=== PATIENT | male | born 1950 | race Caucasian/White ===

== ENCOUNTER 2021-11-26 16:56 | Observation (INO) | payer MEDICARE, OTHER ==
[2021-11-26] MEDS ORDERED: Albuterol/Ipratropium 3.0-0.5 MG/3 ML Neb Soln NEB ONE (17:02)
[2021-11-26] MEDS ORDERED: Sodium Chloride 0.9% 10 ML Syringe FLUSH PRN (17:09)
[2021-11-26 17:23] LABS: O2 DELIVERY DEVICE NASAL CANNULA
[2021-11-26 17:26] LABS: O2 SATURATION ARTERIAL 97 % (95-98); PCO2 ARTERIAL 48 mm/Hg0 (35-45); PO2 ARTERIAL 98 mm/Hg (80-100)
[2021-11-26 17:27] LABS: BICARBONATE,ARTERIAL 25.8 mm/L (22.0-26.0)
[2021-11-26] MEDS ORDERED: Furosemide 40 MG/4 ML VIAL IVPUSH ONE (17:45)
[2021-11-26] MEDS ORDERED: Acetaminophen 500 MG Tab PO PRN (18:51)
[2021-11-26] MEDS: Albuterol/Ipratropium 3.0-0.5 MG/3 ML Neb Soln NEB PRN (19:47)
[2021-11-26] MEDS: methylPREDNISolone Sodium Succinate 125 MG/2 ML SDV IVPUSH SCH (19:48)
[2021-11-26] MEDS: Montelukast 10 MG Tab PO SCH (19:48)
[2021-11-26] MEDS: Albuterol/Ipratropium 3.0-0.5 MG/3 ML Neb Soln NEB SCH (20:00)
[2021-11-27] MEDS: Albuterol/Ipratropium 3.0-0.5 MG/3 ML Neb Soln NEB PRN ×2 (00:15→23:24)
[2021-11-27] MEDS: methylPREDNISolone Sodium Succinate 125 MG/2 ML SDV IVPUSH SCH ×2 (07:06→19:36)
[2021-11-27] MEDS: Beta-Carotene (Vitamin A) w/Vitamin C & E plus Minerals Tab PO SCH (08:32)
[2021-11-27] MEDS: Albuterol/Ipratropium 3.0-0.5 MG/3 ML Neb Soln NEB SCH ×4 (08:32→19:37)
[2021-11-27] MEDS: GUAIFENESIN 600 MG PO SCH ×3 (09:22→19:37)
[2021-11-27] MEDS: LOSARTAN 25 MG PO SCH (09:27)
[2021-11-27] MEDS: Furosemide 20 MG Tab ** OWN MED PO SCH (09:28)
[2021-11-27] MEDS: atorvaSTATin 20 MG Tab ** OWN MED PO SCH (09:29)
[2021-11-27] MEDS: METOPROLOL SUCCINATE 50 MG PO SCH (09:29)
[2021-11-27] MEDS: FORMOTEROL INH SCH ×2 (09:30→19:37)
[2021-11-27] MEDS: BUDESONIDE INH SCH ×2 (09:30→19:37)
[2021-11-27] MEDS ORDERED: Tiotropium Inhaler 18 MCG Inhalation Powder Cap Kit of 5 INH SCH (16:00)
[2021-11-27] MEDS: Montelukast 10 MG Tab PO SCH (19:37)
[2021-11-28] MEDS: Albuterol/Ipratropium 3.0-0.5 MG/3 ML Neb Soln NEB PRN (03:29)
[2021-11-28] MEDS: FORMOTEROL INH SCH (07:40)
[2021-11-28] MEDS: LOSARTAN 25 MG PO SCH (07:40)
[2021-11-28] MEDS: BUDESONIDE INH SCH (07:40)
[2021-11-28] MEDS: GUAIFENESIN 600 MG PO SCH (07:45)
[2021-11-28] MEDS: Albuterol/Ipratropium 3.0-0.5 MG/3 ML Neb Soln NEB SCH (07:45)
[2021-11-28] MEDS: Furosemide 20 MG Tab ** OWN MED PO SCH (07:45)
[2021-11-28] MEDS: Beta-Carotene (Vitamin A) w/Vitamin C & E plus Minerals Tab PO SCH (07:46)
[2021-11-28] MEDS: METOPROLOL SUCCINATE 50 MG PO SCH (07:46)
[2021-11-28] MEDS: atorvaSTATin 20 MG Tab ** OWN MED PO SCH (07:46)
[2021-11-28] MEDS: methylPREDNISolone Sodium Succinate 125 MG/2 ML SDV IVPUSH SCH (07:47)
== END 2021-11-28 10:25 | disposition home or self-care (01) ==
LOC: CC.ED 16:56 → UNDOADMOB 17:55 → CC.MS 17:55
PROVIDERS: ADMIT Nurse Practitioner Family; ATTEND Family Medicine
DX: J44.1 Chronic obstructive pulmonary disease with (acute) exacerbation (principal); I11.0 Hypertensive heart disease with heart failure; I50.30 Unspecified diastolic (congestive) heart failure; H91.90 Unspecified hearing loss, unspecified ear; Z99.81 Dependence on supplemental oxygen; Z87.891 Personal history of nicotine dependence; Z79.51 Long term (current) use of inhaled steroids; Z79.899 Other long term (current) drug therapy
CPT/HCPCS: 36415; 36600; 71045; 80053; 82803; 83605; 83880; 85025; 93005; 93010; 94640; 96374; 96375; 96376; 99217; 99220; 99225; 99285-25; A9270-GY; G0378; J1940; J2930; J7620-GY

== ENCOUNTER 2022-07-09 03:49 | Inpatient (IN) | payer MEDICARE, OTHER ==
[~2022-07-09 03:49] MED LIST: Acetaminophen 325 MG Tab ONE; Acetaminophen 500 MG Tab ONE
[2022-07-09] MEDS ORDERED: Acetaminophen 325 MG Tab PO ONE (03:57)
[2022-07-09] MEDS ORDERED: Sodium Chloride 0.9% 10 ML Syringe FLUSH PRN (04:00)
[2022-07-09 04:23] LABS: CHLORIDE,CL 105 mEq/L (98-106); SODIUM,NA 144 mEq/L (136-145)
[2022-07-09 04:25] LABS: ESTIMATED GFR 53 mL/min (>=60)
[2022-07-09 04:44] LABS: PTT,PARTIAL THROMBOPLSTIN TIME 21.3 SEC (23.2-32.3)
[2022-07-09] MEDS ORDERED: Azithromycin 500 MG in Sodium Chloride 0.9% 250 ML IV STA (04:44)
[2022-07-09] MEDS ORDERED: cefTRIAXone 1 GM Vial IVPUSH ONE (04:44)
[2022-07-09] MEDS ORDERED: Iopamidol 755 Mg/ML 100 ML Bottle IVPUSH ONE (04:49)
[2022-07-09] MEDS: Sodium Chloride 0.9% 1,000 ML IV SCH ×2 (04:52→13:49)
[2022-07-09] MEDS ORDERED: Sodium Chloride 0.9% 1,000 ML IV SCH (05:00)
[2022-07-09 09:04] LABS: O2 DELIVERY DEVICE SIMPLE MASK
[2022-07-09 09:07] LABS: BASE EXCESS ARTERIAL 1.2 (-2.0-3.0); BICARBONATE,ARTERIAL 25.8 mm/L (22.0-26.0); O2 SATURATION ARTERIAL 94 % (95-98); PCO2 ARTERIAL 41 mm/Hg0 (35-45); PO2 ARTERIAL 68 mm/Hg (80-100)
[2022-07-09] MEDS ORDERED: Tiotropium Inhaler 18 MCG Inhalation Powder Cap Kit of 5 INH PRN (09:15)
[2022-07-09] MEDS ORDERED: Albuterol 8 GM Inhaler INH PRN (09:29)
[2022-07-09] MEDS ORDERED: Non-Formulary Medication 1 Each (Metoprolol Succinate [Toprol Xl 50mg] 50 MG Tab.Er) PO SCH (09:30)
[2022-07-09] MEDS ORDERED: Non-Formulary Medication 1 Each (Budesonide/Formoterol 6 GM Inhaler) INH SCH (09:30)
[2022-07-09] MEDS ORDERED: predniSONE 20 MG Tab PO SCH ×2 (09:30→10:02)
[2022-07-09] MEDS ORDERED: GUAIFENESIN 600 MG PO SCH (09:30)
[2022-07-09] MEDS ORDERED: [UNRECOGNIZED DRUG - OTHER] PO SCH (09:30)
[2022-07-09] MEDS ORDERED: BREZTRI AEROSPHERE INH SCH (10:06)
[2022-07-09] MEDS: Losartan 25 MG Tab PO SCH (10:14)
[2022-07-09] MEDS: Metoprolol Succinate 25 MG Tab.ER PO SCH (10:14)
[2022-07-09] MEDS: Furosemide 20 MG Tab PO SCH (10:15)
[2022-07-09] MEDS: predniSONE 20 MG Tab PO SCH ×2 (10:18→12:21)
[2022-07-09] MEDS: Multivitamin Tab PO SCH (10:21)
[2022-07-09] MEDS: guaiFENesin 200 MG Tab PO SCH ×2 (10:21→19:30)
[2022-07-09] MEDS: predniSONE 1 MG Tab PO SCH (10:21)
[2022-07-09] MEDS: BREZTRI AEROSPHERE INH SCH ×2 (10:24→19:30)
[2022-07-09] MEDS: predniSONE 5 MG Tab PO SCH (10:46)
[2022-07-09] MEDS: atorvaSTATin 20 MG Tab PO SCH (11:43)
[2022-07-09] MEDS ORDERED: Albuterol/Ipratropium 3.0-0.5 MG/3 ML Neb Soln NEB SCH (12:00)
[2022-07-09] MEDS: Albuterol/Ipratropium 3.0-0.5 MG/3 ML Neb Soln NEB PRN ×2 (13:53→19:32)
[2022-07-09] MEDS: cefTRIAXone 1 GM Vial IVPUSH SCH (19:31)
[2022-07-09] MEDS: Montelukast 10 MG Tab PO SCH (19:31)
[2022-07-09] MEDS ORDERED: Enoxaparin 40 MG/0.4 ML Syringe SUBCUT SCH (20:00)
[2022-07-10] MEDS: Acetaminophen 500 MG Tab PO PRN (03:04)
[2022-07-10] MEDS: cefTRIAXone 1 GM Vial IVPUSH SCH ×2 (07:45→19:28)
[2022-07-10] MEDS: Losartan 25 MG Tab PO SCH (07:45)
[2022-07-10] MEDS: guaiFENesin 200 MG Tab PO SCH ×2 (07:46→19:28)
[2022-07-10] MEDS: atorvaSTATin 20 MG Tab PO SCH (07:47)
[2022-07-10] MEDS: Azithromycin 250 MG Tab PO SCH (07:47)
[2022-07-10] MEDS: Metoprolol Succinate 25 MG Tab.ER PO SCH (07:48)
[2022-07-10] MEDS: predniSONE 1 MG Tab PO SCH (07:48)
[2022-07-10] MEDS: Furosemide 20 MG Tab PO SCH (07:49)
[2022-07-10] MEDS: Multivitamin Tab PO SCH (07:56)
[2022-07-10] MEDS: predniSONE 5 MG Tab PO SCH (07:58)
[2022-07-10] MEDS: BREZTRI AEROSPHERE INH SCH ×2 (07:59→19:28)
[2022-07-10] MEDS: Albuterol/Ipratropium 3.0-0.5 MG/3 ML Neb Soln NEB PRN (11:13)
[2022-07-10] MEDS: Albuterol/Ipratropium 3.0-0.5 MG/3 ML Neb Soln NEB SCH (19:28)
[2022-07-10] MEDS: Montelukast 10 MG Tab PO SCH (19:28)
[2022-07-11] MEDS: Acetaminophen 500 MG Tab PO PRN (05:38)
[2022-07-11] MEDS: cefTRIAXone 1 GM Vial IVPUSH SCH ×2 (07:31→19:54)
[2022-07-11] MEDS: Albuterol/Ipratropium 3.0-0.5 MG/3 ML Neb Soln NEB SCH ×2 (07:31→19:53)
[2022-07-11] MEDS: predniSONE 1 MG Tab PO SCH (07:31)
[2022-07-11] MEDS: atorvaSTATin 20 MG Tab PO SCH (07:31)
[2022-07-11] MEDS: guaiFENesin 200 MG Tab PO SCH ×2 (07:32→19:53)
[2022-07-11] MEDS: Furosemide 20 MG Tab PO SCH (07:32)
[2022-07-11] MEDS: Multivitamin Tab PO SCH (07:32)
[2022-07-11] MEDS: predniSONE 5 MG Tab PO SCH (07:32)
[2022-07-11] MEDS: Azithromycin 250 MG Tab PO SCH (07:32)
[2022-07-11] MEDS: Losartan 25 MG Tab PO SCH (07:36)
[2022-07-11] MEDS: Metoprolol Succinate 25 MG Tab.ER PO SCH (07:36)
[2022-07-11] MEDS: BREZTRI AEROSPHERE INH SCH ×2 (07:38→20:00)
[2022-07-11] MEDS: Heparin Sodium 5,000 Units/ML Vial SUBCUT SCH (19:52)
[2022-07-11] MEDS: Montelukast 10 MG Tab PO SCH (19:54)
[2022-07-12] MEDS: BREZTRI AEROSPHERE INH SCH (07:53)
[2022-07-12] MEDS: cefTRIAXone 1 GM Vial IVPUSH SCH (07:53)
[2022-07-12] MEDS: Albuterol/Ipratropium 3.0-0.5 MG/3 ML Neb Soln NEB SCH (07:56)
[2022-07-12] MEDS: Azithromycin 250 MG Tab PO SCH (07:56)
[2022-07-12] MEDS: guaiFENesin 200 MG Tab PO SCH (07:56)
[2022-07-12] MEDS: predniSONE 5 MG Tab PO SCH (07:59)
[2022-07-12] MEDS: Metoprolol Succinate 25 MG Tab.ER PO SCH (07:59)
[2022-07-12] MEDS: atorvaSTATin 20 MG Tab PO SCH (07:59)
[2022-07-12] MEDS: predniSONE 1 MG Tab PO SCH (08:00)
[2022-07-12] MEDS: Losartan 25 MG Tab PO SCH (08:00)
[2022-07-12] MEDS: Multivitamin Tab PO SCH (08:00)
[2022-07-12] MEDS: Heparin Sodium 5,000 Units/ML Vial SUBCUT SCH (08:01)
[2022-07-12] MEDS: Furosemide 20 MG Tab PO SCH (08:01)
== END 2022-07-12 08:20 | disposition home or self-care (01) | DRG 190 ==
LOC: CC.ED 03:49 → UNDOADMIN 09:12 → CC.MS 09:12
PROVIDERS: ADMIT Nurse Practitioner Family; ATTEND Nurse Practitioner Family
DX: J44.0 Chronic obstructive pulmonary disease with (acute) lower respiratory infection (principal); J18.9 Pneumonia, unspecified organism; J44.1 Chronic obstructive pulmonary disease with (acute) exacerbation; R09.02 Hypoxemia; H91.90 Unspecified hearing loss, unspecified ear; E78.00 Pure hypercholesterolemia, unspecified; I50.9 Heart failure, unspecified; I11.0 Hypertensive heart disease with heart failure; Z99.81 Dependence on supplemental oxygen; Z79.51 Long term (current) use of inhaled steroids; E66.9 Obesity, unspecified; Z87.891 Personal history of nicotine dependence; Z79.52 Long term (current) use of systemic steroids; Z79.899 Other long term (current) drug therapy; Z20.822 Contact with and (suspected) exposure to COVID-19; Z68.39 Body mass index [BMI] 39.0-39.9, adult
CPT/HCPCS: 36415; 36600; 71045; 71275; 80053; 81003; 82150; 82803; 83605; 83690; 83880; 84484; 85025; 85379; 85610; 85730; 86140; 87040; 87070; 87205; 87804; 93005; 93010; 94640; 96365; 96366; 96375; 99223; 99232; 99233; 99238; 99285-25; A9270-GY; J0456; J0696; J1644; J1650; J7030; J7050; J7512; J7620-GY; Q9967; U0002

== ENCOUNTER 2023-06-10 15:22 | Emergency (ER) | payer MEDICARE, OTHER ==
[2023-06-10 15:55] LABS: BASOPHILS ABSOLUTE AUTO 0.02 10^3/uL (0.00-0.50); BASOPHILS PERCENT AUTO 0.2 % (0-1); EOSINOPHILS ABSOLUTE AUTO 0.01 10^3/uL (0.00-1.50); EOSINOPHILS PERCENT AUTO 0.1 % (0-6); HEMATOCRIT 44.4 % (42.0-52.0); HEMOGLOBIN 15.1 g/dL (14.0-18.0); IMMATURE GRAN ABSOLUTE AUTO 0.03 10^3/uL (0.00-0.49); IMMATURE GRAN PERCENT AUTO 0.3 % (0.0-4.9); LYMPHOCYTES ABSOLUTE AUTO 1.46 10^3/uL (0.60-5.00); LYMPHOCYTES PERCENT AUTO 15.3 % (24-44); MEAN CORPUSCULAR VOLUME 94.1 fL (83.0-97.0); MONOCYTES ABSOLUTE AUTO 0.75 10^3/uL (0.00-1.50); MONOCYTES PERCENT AUTO 7.8 % (0-10); NEUTROPHILS PERCENT AUTO 76.3 % (41-71); PLATELET COUNT,PLT 179 10^3/uL (150-400); RED BLOOD CELL COUNT 4.72 x10^6/uL (4.50-6.00); WHITE BLOOD CELL COUNT,WBC 9.6 10^3/uL (4.0-11.0)
[2023-06-10 16:15] LABS: ALANINE AMINOTRANSFERASE,ALT 32 U/L (12-78); ALBUMIN 3.5 g/dL (3.4-5.0); ALKALINE PHOSPHATASE 76 U/L (46-116); ASPARTATE AMNIOTRANSFERASE,AST 11 U/L (15-37); BILIRUBIN TOTAL 0.4 mg/dL (0.0-1.0); BLOOD UREA NITROGEN,BUN 23 mg/dL (7-18); C-REACTIVE PROTEIN 0.07 mg/dL (<=0.30); CALCIUM 9.5 mg/dL (8.4-10.1); CARBON DIOXIDE,CO2 31 mmol/L (21-32); CHLORIDE,CL 104 mEq/L (98-106); CREATININE 1.4 mg/dL (0.7-1.3); GLUCOSE RANDOM 130 mg/dL (75-99); MAGNESIUM 1.7 mg/dL (1.8-2.4); POTASSIUM,K 3.4 mEq/L (3.5-5.0); PROTEIN TOTAL,TP 7.3 g/dL (6.4-8.2); SODIUM,NA 143 mEq/L (136-145)
[2023-06-10 16:16] LABS: ESTIMATED GFR 53 mL/min (>=60)
[2023-06-10] MEDS: methylPREDNISolone Sodium Succinate 125 MG/2 ML SDV IVPUSH STA (16:50)
[2023-06-10] MEDS: Albuterol/Ipratropium 3.0-0.5 MG/3 ML Neb Soln NEB ONE (16:50)
[2023-06-10] MEDS: Potassium Chloride 10 MEQ Tab.ER PO STA (17:20)
[2023-06-10] MEDS: Magnesium Chloride 64 MG Tab.ER PO STA (17:20)
[2023-06-10 18:52] VITALS: BP 146/88; PULSE 103
== END 2023-06-10 17:00 | disposition home or self-care (01) ==
LOC: CC.ED 15:22
DX: J44.1 Chronic obstructive pulmonary disease with (acute) exacerbation (principal); I11.0 Hypertensive heart disease with heart failure; I50.32 Chronic diastolic (congestive) heart failure; E87.6 Hypokalemia; E66.9 Obesity, unspecified; Z87.891 Personal history of nicotine dependence; Z79.899 Other long term (current) drug therapy
CPT/HCPCS: 36415; 71046; 80053; 83735; 83880; 84484; 85025; 86140; 93005; 96374; 99284; 99285-25; J2930; J7620-GY; U0002